=== PATIENT | male | born 1985 | race African-American/Black ===

== ENCOUNTER 2017-10-16 11:50 | Emergency (ER) | payer SELFPAY ==
[2017-10-16 11:59] VITALS: BP 123/74
[2017-10-16] MEDS ORDERED: CEPHALEXIN 500 MG CAPSULE PO ONE ×2 (12:21→12:50)
--- NOTE | 2017-10-16 12:23 | ER Document Report ---
HPI - HPI Patient complains to provider of: suture r removal Onset: Other - 8 days ago Pain Level: 2 Context: 32 yo male sutured arteaga thenar aspect left thumb on broken window 8 days ago. Suture in ER, Xray was negative for FB. He pushed a littel pus out yesterday. Associated Symptoms: None Exacerbated by: Denies Relieved by: Denies - ROS ROS below otherwise negative: Yes Systems Reviewed and Negative: Yes All other systems reviewed and negative Past Medical History - General Information source: Patient - Social History Smoking Status: Unknown if Ever Smoked Frequency of alcohol use: None Drug Abuse: None Lives with: Family Family History: Reviewed & Not Pertinent - Past Medical History Cardiac Medical History: Reports: Hx Hypertension Neurological Medical History: Reports: Hx Migraine Renal/ Medical History: Denies: Hx Peritoneal Dialysis Surgical Hx: Negative - Immunizations Hx Diphtheria, Pertussis, Tetanus Vaccination: Yes Vertical Provider Document - CONSTITUTIONAL Agree With Documented VS: Yes Exam Limitations: No Limitations General Appearance: No Apparent Distress - INFECTION CONTROL TRAVEL OUTSIDE OF THE [place] IN LAST 30 DAYS: No - HEENT HEENT: Normocephalic - NECK Neck: Supple - RESPIRATORY O2 Sat by Pulse Oximetry: 99 - MUSCULOSKELETAL/EXTREMETIES Musculoskeletal/Extremeties: MAEW, FROM, Tender - see below - NEURO Level of Consciousness: Awake, Alert Motor/Sensory: No Motor Deficit, No Sensory Deficit - DERM Integumentary: Laceration - Procedure Note: sutures removed by PCT, wound dehiesced with pus drainage. Irrigated with 1 liter NS, antibacterial soap, bacitracin, telfa, gauze, coban. devitalized tissue excised. Course - Re-evaluation Re-evalutation: 10/16/17 12:48 After 1 liter irrigation there was no foreign body in the wound, devitalized tissue excised, and I looked at the original x-rays there was no foreign body noted on the films, bacitracin, telfa, gauze, coban dressing. FROM, n/v intact. 10/16/17 12:49 - Vital Signs Vital signs: Temp Pulse Resp BP Pulse Ox 97.5 F 87 16 123/74 99 10/16/17 11:58 10/16/17 11:58 10/16/17 11:58 10/16/17 11:58 11/18/17 11:58 Discharge - Discharge Clinical Impression: laceration repair infection, left, suture removal, Wound dehiscence Condition: Good Disposition: HOME, SELF-CARE Instructions: Abscess ([facility]), Cephalexin ([facility]), Delayed Wound Closure ([facility]) Additional Instructions: wound check in 48 hours here in the ED wash under running water daily with antibacterial soap given to you bacitracin non stick dressing coban wrap (not too tight) will heal from the inside out. will take several weeks increase the keflex to four times per day to er any fever, worsening pain, pus, swelling Please complete the patient satisfaction survey if you get one, and return it.. If you do not receive a survey, then you can go to the [facility] website, [email or web address] and place your comments about your very good care. Thank you very much. It was a pleasure being your medical provider today. Prescriptions: Cephalexin Monohydrate [Keflex 500 mg Capsule] 500 mg PO QID #28 capsule Forms: Return to Work
== END 2017-10-16 12:50 | disposition home or self-care (01) ==
LOC: ER 11:50
DX: Z48.02 Encounter for removal of sutures (principal); T81.33XA Disruption of traumatic injury wound repair, initial encounter
CPT/HCPCS: 87070; 87077; 87205